=== PATIENT | male | born 1950 | race Caucasian/White ===

== ENCOUNTER 2019-04-07 14:31 | Outpatient (CLI) | payer MEDICARE, OTHER, SELFPAY ==
--- NOTE | 2019-04-07 14:46 | CT_ITS ---
WS: [id number] CT HEAD without and with contrast TECHNIQUE: Noncontrast and contrast-enhanced CT of the head. CLINICAL INFORMATION: WEAKNESS OF RT FACIAL MUSCLE, FACIAL WEAKNESS COMPARISON: None. DLP: [id number] scans at [facility] use at least one of these dose optimization techniques: automat ed exposure control; mA and/or kV adjustment per patient size (includes targeted exams where dose is matched to clinical indication); or iterative reconstruction. FINDINGS: Noncontrast CT of the head. No evidence of intracranial hemorrhage or mass effect. Ventricular system and basal cisterns are patent. Mild small vessel changes. Moderate parenchymal volume loss. No extra -axial fluid collections. Tiny chronic lacunar infarct right caudate. No abnormal intracranial enhancement. No enhancing lesions. Paranasal sinuses and mastoid air cells a re well aerated. CT/CT head wo/w con [id number] IMPRESSION: 1. No evidence of intracranial hemorrhage or mass effect. 2. Normal rivera-white differentiation. 3. Mild small vessel changes with moderate parenchymal volume loss. 4. Tiny chronic lacunar infarct right caudate. 5. No abnormal intracranial enhancement.
--- NOTE | 2019-04-07 14:46 | CT_ITS ---
WS: [id number] CT HEAD without and with contrast TECHNIQUE: Noncontrast and contrast-enhanced CT of the head. CLINICAL INFORMATION: WEAKNESS OF RT FACIAL MUSCLE, FACIAL WEAKNESS COMPARISON: None. DLP: [id number] scans at [facility] use at least one of these dose optimization techniques: automat ed exposure control; mA and/or kV adjustment per patient size (includes targeted exams where dose is matched to clinical indication); or iterative reconstruction. FINDINGS: Noncontrast CT of the head. No evidence of intracranial hemorrhage or mass effect. Ventricular system and basal cisterns are patent. Mild small vessel changes. Moderate parenchymal volume loss. No extra -axial fluid collections. Tiny chronic lacunar infarct right caudate. No abnormal intracranial enhancement. No enhancing lesions. Paranasal sinuses and mastoid air cells a re well aerated.
[2019-04-07 15:07] LABS: Blood Urea Nitrogen 14 mg/dL (8-23); Glomerular Filtration Rate 73.9 mL/min (90-130)
[2019-04-07] MEDS: iohexol 300 mg/mL 100 mL Btl IV (15:08)
== END 2019-04-07 14:32 | disposition home or self-care (01) ==
LOC: RADWPI 14:37
PROVIDERS: Family Provider Family Medicine; PCP Family Medicine; Visit Provider Family Medicine
DX: I63.81 Other cerebral infarction due to occlusion or stenosis of small artery (principal); R29.810 Facial weakness
CPT/HCPCS: 70470; 82565; 84520; Q9967

== ENCOUNTER → 2019-12-21 08:34 | Outpatient (BNVA) | payer MEDICARE, OTHER, SELFPAY | PROVIDERS: Visit Provider Specialist | DX: H53.2 Diplopia (principal); F17.210 Nicotine dependence, cigarettes, uncomplicated; R53.1 Weakness | CPT/HCPCS: 83516; 99204 ==

== ENCOUNTER 2019-12-21 10:06 | Outpatient (CLI) | payer MEDICARE, OTHER, SELFPAY ==
[2019-12-26 16:08] LABS: Acetylcholine Recept Modulatin 17
== END 2019-12-21 10:07 | disposition home or self-care (01) ==
LOC: LAB 10:15
PROVIDERS: Visit Provider Specialist
DX: R53.1 Weakness (principal)
CPT/HCPCS: 83516